=== PATIENT | male | born 1950 | race Caucasian/White ===

== ENCOUNTER 2021-11-14 16:57 | Inpatient (IN) | payer MEDICARE ==
[~2021-11-14 16:57] MED LIST: Iopamidol-370 76% 500 ML 1 ML ONE
[2021-11-14 17:33] LABS: #Eosinphils 0.1 thou/uL (0.0-0.7); #Lymphocytes 0.9 thou/uL (1.20-3.40); #Monocytes 1.1 thou/uL (0.11-0.59); #Neutrophils 7.8 thou/uL (1.40-6.50); %Basophils 0.1 % (0.0-1.0); %Eosinophils 0.8 % (0.0-10.0); %Monocytes 11.3 % (0.0-10.0); %Neutrophils 78.8 % (42.0-75.0); Hemoglobin 11.9 g/dL (14.0-18.0); Mean Corpuscular HGB CONC 32.7 g/dL (32.0-36.0); Mean Corpuscular Hemoglobin 32.7 pg (27.0-31.0); Mean Platelet Volume 9.4 fL (7.4-10.4); Platelet Count 157 thou/uL (130-400); RBC Distribution Width 13.8 % (11.5-14.5); Red Blood Cell (RBC) Count 3.64 mill/uL (4.70-6.10); White Blood Cell (WBC) Count 9.9 thou/uL (4.8-10.8)
[2021-11-14 17:54] LABS: ALT (SGPT) 67 U/L (8-55); AST (SGOT) 57 U/L (5-34); Albumin 3.4 g/dL (3.4-4.8); Alkaline Phosphatase 275 U/L (40-110); Anion Gap 13 mmol/L (10-20); BUN (Urea Nitrogen) 23 mg/dL (8.4-25.7); Bilirubin, Total 1.1 mg/dL (0.2-1.2); Calc. Creatinine Clearance 0 mL/min (70-130); Calcium 9.2 mg/dL (7.8-10.44); Carbon Dioxide 25 mmol/L (23-31); Chloride 101 mmol/L (98-107); Estimated GFR 95; Globulin 3.6 g/dL (2.4-3.5); Glucose 165 mg/dL (80-115); Potassium 4.2 mmol/L (3.5-5.1); Sodium 135 mmol/L (136-145)
[2021-11-14 18:16] LABS: INR-International Normal Ratio 1.2; PTT 38.8 sec (22.9-36.1); Prothrombin Time 15.4 sec (12.0-14.7)
[2021-11-14] MEDS ORDERED: Pantoprazole 40 MG VIAL ONE (20:49)
[2021-11-14] MEDS ORDERED: Ondansetron PF 4 MG/2 ML Vial ONE (20:49)
[2021-11-14] MEDS ORDERED: Morphine 4 MG/ML VIAL ONE (20:49)
[2021-11-14] MEDS ORDERED: metroNIDAZOLE 500 MG/100 ML BAG ONE (20:50)
[2021-11-14] MEDS ORDERED: Ondansetron ODT 4 MG TAB SL PRN (23:45)
[2021-11-14] MEDS ORDERED: Acetaminophen 325 MG TAB PO PRN (23:45)
[2021-11-14] MEDS ORDERED: Ondansetron PF 4 MG/2 ML Vial IVP PRN (23:45)
[2021-11-15 00:02] VITALS: BMI 30.5
[2021-11-15 00:35] LABS: Hemoglobin 11.6 g/dL (14.0-18.0)
[2021-11-15] MEDS: Sodium Chloride 0.9% 1,000 ML IV SCH ×2 (01:03→09:34)
[2021-11-15] MEDS: Morphine 4 MG/ML VIAL SLOW IVP PRN ×2 (01:03→09:50)
[2021-11-15] MEDS ORDERED: Octreotide Acetate 1,250 MCG in Sodium Chloride 0.9% 250 ML 250 ML IVPB SCH (01:15)
[2021-11-15] MEDS ORDERED: Octreotide Acetate 100 MCG/ML VIAL SLOW IVP SCH (01:30)
[2021-11-15] MEDS ORDERED: Octreotide Acetate 50 MCG/ML AMP SLOW IVP SCH (01:30)
[2021-11-15] MEDS ORDERED: Acetaminophen 325 MG TAB PO PRN (04:49)
[2021-11-15 07:11] LABS: Anion Gap 18 mmol/L (10-20); BUN (Urea Nitrogen) 20 mg/dL (8.4-25.7); Calc. Creatinine Clearance 129 mL/min (70-130); Calcium 8.7 mg/dL (7.8-10.44); Carbon Dioxide 16 mmol/L (23-31); Chloride 106 mmol/L (98-107); Estimated GFR 97; Glucose 114 mg/dL (80-115); Potassium 5.3 mmol/L (3.5-5.1); Sodium 135 mmol/L (136-145)
[2021-11-15 08:24] LABS: #Eosinphils 0.2 thou/uL (0.0-0.7); #Lymphocytes 0.6 thou/uL (1.20-3.40); #Monocytes 0.7 thou/uL (0.11-0.59); #Neutrophils 3.8 thou/uL (1.40-6.50); %Basophils 0.4 % (0.0-1.0); %Eosinophils 3.4 % (0.0-10.0); %Lymphocytes 11.8 % (21.0-51.0); %Monocytes 13.1 % (0.0-10.0); %Neutrophils 71.4 % (42.0-75.0); Hemoglobin 10.7 g/dL (14.0-18.0); MDiff Complete? YES; Mean Corpuscular HGB CONC 33.5 g/dL (32.0-36.0); Mean Corpuscular Hemoglobin 33.4 pg (27.0-31.0); Mean Corpuscular Volume 99.8 fL (78.0-98.0); Mean Platelet Volume 9.6 fL (7.4-10.4); Platelet Count 102 thou/uL (130-400); Platelet Morphology Comment Appears Decreased; Polychromasia SLIGHT = 2-3 cells (100X) (0-2/hpf); RBC Distribution Width 13.8 % (11.5-14.5); Red Blood Cell (RBC) Count 3.22 mill/uL (4.70-6.10); White Blood Cell (WBC) Count 5.3 thou/uL (4.8-10.8)
[2021-11-15] MEDS: Pantoprazole 40 MG VIAL IVP SCH ×2 (09:35→21:54)
[2021-11-15] MEDS ORDERED: Lidocaine 1% PF 5 ML VIAL ONE (12:41)
[2021-11-15] MEDS ORDERED: PROPOFOL 200 MG/20 ML VIAL ONE (12:41)
[2021-11-15] MEDS ORDERED: Morphine 2 MG/ML VIAL SLOW IVP PRN (21:46)
[2021-11-15] MEDS: Nadolol 40 MG TAB PO SCH (21:52)
[2021-11-16 04:58] LABS: #Eosinphils 0.2 thou/uL (0.0-0.7); #Lymphocytes 0.8 thou/uL (1.20-3.40); #Monocytes 0.6 thou/uL (0.11-0.59); #Neutrophils 3.3 thou/uL (1.40-6.50); %Basophils 0.7 % (0.0-1.0); %Eosinophils 3.8 % (0.0-10.0); %Lymphocytes 16.2 % (21.0-51.0); %Neutrophils 67.4 % (42.0-75.0); Hemoglobin 9.9 g/dL (14.0-18.0); Mean Corpuscular HGB CONC 32.5 g/dL (32.0-36.0); Mean Corpuscular Hemoglobin 32.5 pg (27.0-31.0); Platelet Count 123 thou/uL (130-400); Red Blood Cell (RBC) Count 3.03 mill/uL (4.70-6.10); White Blood Cell (WBC) Count 4.8 thou/uL (4.8-10.8)
[2021-11-16 05:21] LABS: Anion Gap 11 mmol/L (10-20); BUN (Urea Nitrogen) 23 mg/dL (8.4-25.7); Calc. Creatinine Clearance 123 mL/min (70-130); Calcium 8.7 mg/dL (7.8-10.44); Carbon Dioxide 26 mmol/L (23-31); Chloride 105 mmol/L (98-107); Estimated GFR 95; Glucose 122 mg/dL (80-115); Potassium 4.8 mmol/L (3.5-5.1); Sodium 137 mmol/L (136-145)
[2021-11-16] MEDS: Pantoprazole 40 MG VIAL IVP SCH ×3 (09:47→22:14)
[2021-11-16] MEDS: Nadolol 40 MG TAB PO SCH (22:04)
[2021-11-16] MEDS: HYDROcodone/Acetaminophen 5/325 mg Tablet PO PRN (22:20)
[2021-11-17 05:25] LABS: #Basophils 0.1 thou/uL (0.0-0.2); #Eosinphils 0.2 thou/uL (0.0-0.7); #Lymphocytes 1.1 thou/uL (1.20-3.40); #Monocytes 0.7 thou/uL (0.11-0.59); #Neutrophils 2.9 thou/uL (1.40-6.50); %Basophils 1.4 % (0.0-1.0); %Eosinophils 4.4 % (0.0-10.0); %Lymphocytes 21.3 % (21.0-51.0); %Monocytes 14.3 % (0.0-10.0); %Neutrophils 58.6 % (42.0-75.0); Hemoglobin 10.2 g/dL (14.0-18.0); Mean Corpuscular HGB CONC 33.8 g/dL (32.0-36.0); Mean Corpuscular Hemoglobin 33.7 pg (27.0-31.0); Mean Corpuscular Volume 99.8 fL (78.0-98.0); Mean Platelet Volume 9.2 fL (7.4-10.4); Platelet Count 130 thou/uL (130-400); RBC Distribution Width 13.7 % (11.5-14.5); Red Blood Cell (RBC) Count 3.01 mill/uL (4.70-6.10)
[2021-11-17 05:46] LABS: Anion Gap 13 mmol/L (10-20); BUN (Urea Nitrogen) 23 mg/dL (8.4-25.7); Calc. Creatinine Clearance 124 mL/min (70-130); Calcium 8.7 mg/dL (7.8-10.44); Carbon Dioxide 26 mmol/L (23-31); Chloride 104 mmol/L (98-107); Estimated GFR 95; Glucose 94 mg/dL (80-115); Potassium 4.3 mmol/L (3.5-5.1); Sodium 139 mmol/L (136-145)
[2021-11-17] MEDS: Pantoprazole 40 MG VIAL IVP SCH ×2 (08:03→22:23)
[2021-11-17] MEDS ORDERED: Fentanyl 100 MCG/2 ML VIAL ONE (11:30)
[2021-11-17] MEDS ORDERED: Midazolam HCl 2 mg/2 ml Vial ONE (11:31)
[2021-11-17] MEDS ORDERED: Sodium Bicarbonate 2.5 MEQ/5 ML VIAL ONE (11:31)
[2021-11-17] MEDS ORDERED: Acetaminophen 500 MG TAB PO PRN (14:13)
[2021-11-17] MEDS: HYDROcodone/Acetaminophen 5/325 mg Tablet PO PRN ×2 (18:28→22:19)
[2021-11-17] MEDS: Nadolol 40 MG TAB PO SCH (22:05)
[2021-11-18 04:49] LABS: #Eosinphils 0.2 thou/uL (0.0-0.7); #Lymphocytes 0.8 thou/uL (1.20-3.40); #Monocytes 0.8 thou/uL (0.11-0.59); #Neutrophils 3.4 thou/uL (1.40-6.50); %Basophils 0.7 % (0.0-1.0); %Eosinophils 3.8 % (0.0-10.0); %Lymphocytes 15.4 % (21.0-51.0); %Monocytes 14.7 % (0.0-10.0); %Neutrophils 65.5 % (42.0-75.0); Hemoglobin 10.2 g/dL (14.0-18.0); Mean Corpuscular HGB CONC 33.5 g/dL (32.0-36.0); Mean Corpuscular Hemoglobin 33.3 pg (27.0-31.0); Mean Corpuscular Volume 99.3 fL (78.0-98.0); Mean Platelet Volume 8.9 fL (7.4-10.4); Platelet Count 122 thou/uL (130-400); RBC Distribution Width 13.9 % (11.5-14.5); Red Blood Cell (RBC) Count 3.05 mill/uL (4.70-6.10); White Blood Cell (WBC) Count 5.2 thou/uL (4.8-10.8)
[2021-11-18 05:06] LABS: Anion Gap 11 mmol/L (10-20); BUN (Urea Nitrogen) 17 mg/dL (8.4-25.7); Calc. Creatinine Clearance 136 mL/min (70-130); Calcium 8.3 mg/dL (7.8-10.44); Carbon Dioxide 25 mmol/L (23-31); Chloride 103 mmol/L (98-107); Estimated GFR 98; Glucose 111 mg/dL (80-115); Potassium 4.1 mmol/L (3.5-5.1); Sodium 135 mmol/L (136-145)
[2021-11-18] MEDS: Pantoprazole 40 MG VIAL IVP SCH ×2 (08:24→21:27)
[2021-11-18] MEDS: HYDROcodone/Acetaminophen 5/325 mg Tablet PO PRN (15:43)
[2021-11-18] MEDS ORDERED: GoLYTELY 4,000 ml Bottle PO SCH (18:00)
[2021-11-18] MEDS: Nadolol 40 MG TAB PO SCH (21:25)
[2021-11-19] MEDS: Pantoprazole 40 MG VIAL IVP SCH (07:52)
[2021-11-19] MEDS ORDERED: Metoclopramide HCl 10 MG/2 ML VIAL ONE (10:57)
[2021-11-19] MEDS ORDERED: Ondansetron PF 4 MG/2 ML Vial ONE (10:57)
[2021-11-19] MEDS ORDERED: Dexamethasone 20 MG/5 ML VIAL ONE (10:57)
[2021-11-19] MEDS ORDERED: HYDROmorphone 2 MG/ML VIAL SLOW IVP PRN (11:25)
[2021-11-19] MEDS ORDERED: Promethazine HCl 25 MG/ML VIAL IM PRN (11:25)
[2021-11-19] MEDS ORDERED: Promethazine HCl 25 MG/ML VIAL IVPB PRN (11:25)
[2021-11-19] MEDS ORDERED: Ondansetron HCl/PF 4 MG/2 ML Vial IVP PRN (11:25)
[2021-11-19 13:26] VITALS: BP 135/75; TEMP 98.5
== END 2021-11-19 15:51 | disposition home or self-care (01) | DRG 441 ==
LOC: ERS 16:57 → MSONC 20:17 → OBSVTOIN 11-15 15:43
PROVIDERS: ADMIT Family Medicine; ATTEND Family Medicine
PROC: 0DJ08ZZ Inspection of Upper Intestinal Tract, Via Natural or Artificial Opening Endoscopic (ICD-10-PCS; principal; 2021-11-15)
PROC: 0FB13ZX Excision of Right Lobe Liver, Percutaneous Approach, Diagnostic (ICD-10-PCS; 2021-11-18)
PROC: 0DBK8ZX Excision of Ascending Colon, Via Natural or Artificial Opening Endoscopic, Diagnostic (ICD-10-PCS; 2021-11-19)
PROC: 0DBP8ZX Excision of Rectum, Via Natural or Artificial Opening Endoscopic, Diagnostic (ICD-10-PCS; 2021-11-19)
PROC: 0DBH8ZX Excision of Cecum, Via Natural or Artificial Opening Endoscopic, Diagnostic (ICD-10-PCS; 2021-11-19)
DX: K76.6 Portal hypertension (principal); I81 Portal vein thrombosis; D62 Acute posthemorrhagic anemia; K55.9 Vascular disorder of intestine, unspecified; C22.0 Liver cell carcinoma; I86.4 Gastric varices; Z20.822 Contact with and (suspected) exposure to COVID-19; E83.119 Hemochromatosis, unspecified; K31.89 Other diseases of stomach and duodenum; K74.60 Unspecified cirrhosis of liver; I10 Essential (primary) hypertension; D12.2 Benign neoplasm of ascending colon; D12.0 Benign neoplasm of cecum; D12.8 Benign neoplasm of rectum; Z79.899 Other long term (current) drug therapy; Z98.890 Other specified postprocedural states; Z83.49 Family history of other endocrine, nutritional and metabolic diseases; Z90.49 Acquired absence of other specified parts of digestive tract
CPT/HCPCS: 36415; 47000; 74177; 77012; 80048; 80053; 83605; 85014; 85018; 85025; 85610; 85730; 86850; 86900; 86901; 87040; 88305; 88307; 88313; 88333; 88341; 88342; 93005; 96365; 96375; 96376; C9113; G0378; J0744; J1100; J2250; J2270; J2354; J2405; J2704; J2765; J3010; J7050; Q9967; U0003; U0005

== ENCOUNTER 2022-07-24 18:28 | Emergency (ER) | payer MEDICARE ==
[2022-07-24 19:44] LABS: #Eosinphils 0.1 thou/uL (0.0-0.7); #Lymphocytes 0.3 thou/uL (1.20-3.40); #Monocytes 0.3 thou/uL (0.11-0.59); #Neutrophils 1.7 thou/uL (1.40-6.50); %Eosinophils 2.5 % (0.0-10.0); %Lymphocytes 11.7 % (21.0-51.0); %Monocytes 14.1 % (0.0-10.0); %Neutrophils 71.7 % (42.0-75.0); Hemoglobin 12.5 g/dL (14.0-18.0); Mean Corpuscular HGB CONC 34.2 g/dL (32.0-36.0); Mean Corpuscular Hemoglobin 33.8 pg (27.0-31.0); Mean Corpuscular Volume 98.7 fl (78.0-98.0); Mean Platelet Volume 9.9 fL (7.4-10.4); Platelet Count 36 10x3/uL (130-400); RBC Distribution Width 15.1 % (11.5-14.5); Red Blood Cell (RBC) Count 3.71 mill/uL (4.70-6.10); White Blood Cell (WBC) Count 2.4 10x3/uL (4.8-10.8)
[2022-07-24 20:00] LABS: ALT (SGPT) 30 U/L (8-55); AST (SGOT) 36 U/L (5-34); Albumin 3.5 g/dL (3.4-4.8); Alkaline Phosphatase 298 U/L (40-110); Anion Gap 12 mmol/L (10-20); BUN (Urea Nitrogen) 15 mg/dL (8.4-25.7); Bilirubin, Total 1.2 mg/dL (0.2-1.2); Calc. Creatinine Clearance 0 mL/min (70-130); Calcium 8.9 mg/dL (7.8-10.44); Carbon Dioxide 24 mmol/L (23-31); Chloride 104 mmol/L (98-107); Estimated GFR 104; Glucose 96 mg/dL (80-115); Lipase Less than 4 U/L (8-78); Protein, Total 6.5 g/dL (5.8-8.1); Sodium 136 mmol/L (136-145)
[2022-07-25] MEDS ORDERED: HYDROmorphone 0.5 MG/0.5 ML SYRINGE ONE (02:18)
[2022-07-25] MEDS ORDERED: Ketorolac Tromethamine 30 MG/ML VIAL ONE (02:18)
[2022-07-25] MEDS ORDERED: Iopamidol-370 76% 500 ML MDV (1 ML CHARGE) ONE (09:34)
== END 2022-07-25 05:41 | disposition home or self-care (01) ==
LOC: ERS 18:28
DX: J18.9 Pneumonia, unspecified organism (principal); J90 Pleural effusion, not elsewhere classified; D72.819 Decreased white blood cell count, unspecified; I10 Essential (primary) hypertension
CPT/HCPCS: 36415; 71275; 80053; 83690; 84484; 85025; 93005; 96374; 96375; J1170; J1885; Q9967